=== PATIENT | male | born 1970 | race Caucasian/White ===

== ENCOUNTER 2024-12-11 13:27 | Emergency (ER) | payer OTHER, SELFPAY ==
[2024-12-11 13:51] VITALS: BP 147/86; PULSE 86; RESP 18; TEMP 36.9; O2SAT 99
[2024-12-11] MEDS: TETANUS,DIPHTHERIA,AC PERTUSSIS ADULT (0.5 ML) BOOSTRIX IM (14:45)
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
[2024-12-11] MEDS: LIDOCAINE 1% LOCAL INJ 2 ML AMPUL 8 ML INFILTRATE (15:12)
--- OUTSIDE RECORDS SUMMARY | 2024-12-11 16:15 | XMS_ITS | Clinical Summary ---
Author Organization [facility] Address [facility] [place] [address] Care Team Providers Care University President Name Role Phone None, Provider MD Primary Care Provider Unavaila ble Social History Tobacco Use Types Packs/Day Years Used Date Smoking Tobacco: Never Assessed Sex and Gender Information Value Date Recorded Sex Assigned at Male 07/16/2024 3:37 PM CDT Legal Sex Male 3:37 PM CDT Gender Identity Not on file Sexual Orientation Not on file Plan of Treatment Health Maintenance Due Date Last Done Comments Colorectal Cancer Screening Colonoscopy (10 Years) 1971 Annual Physical 11/09/1974 Hepatitis C 11/09/1989 DTaP, Tdap and Td Vaccines ( 1 - Tdap) 11/09/1990 Hepatitis B Vaccines (1 of 3 - 19+ 3-dose series) 11/09/1990 Pneumococcal Vaccine: 50+ Ye ars (1 of 1 - PCV) 11/09/2021 Zoster Vaccines (1 of 2) 11/09/2021 COVID-19 Vaccine (1 - 2023-2 5 season) 2024 Meningococcal B Vaccine Aged Out No l onger eligible based on patient's age to complete this topic Meningococcal Vaccine Aged Out No paulina triston eligible based on patient's age to complete this topic RSV Immunizations Under 20 Months Aged Out No longer eligible based on patient's age to complete this topic Insurance [facility] Care Teams University President Relationship Specialty Start Date End Date None, Provider, PCP - General UNKNOWN PHYSICIAN SPECIALTY 07/18/24
== END 2024-12-11 16:20 | disposition home or self-care (01) ==
PROVIDERS: Emergency Provider Registered Nurse; PCP Physician Assistant
DX: S01.81XA Laceration without foreign body of other part of head, initial encounter (principal); Z79.899 Other long term (current) drug therapy; I10 Essential (primary) hypertension; Z23 Encounter for immunization; W45.8XXA Other foreign body or object entering through skin, initial encounter
CPT/HCPCS: 12011; 90471; 90715; 99213; G0463; J2003